=== PATIENT | female | born 1960 | race Caucasian/White ===

== ENCOUNTER 2018-05-26 21:07 | Emergency (ER) | payer BC ==
--- NOTE | 2018-05-26 22:36 | EDM.PDOC ---
<Nati Babb - Last Filed: 05/26/18 22:48> ED HPI GENERAL MEDICAL PROBLEM - General Chief Complaint: Lower Extremity Injury/Pain Stated Complaint: FOOT/ANKLE PAIN Time Seen by Provider: 05/26/18 21:43 Source of Information: Reports: Patient History Limitations: Reports: No Limitations - History of Present Illness INITIAL COMMENTS - FREE TEXT/NARRATIVE: 57 y/o female presents to the ER with cc right ankle and foot pain for the past 2 days. She states she has had problems with this foot before and had bone spurs. She has taken Naprosyn for the pain and it seems to work well. Onset Date: 05/24/18 Onset Time: 12:00 Duration: Getting Worse Location: Reports: Lower Extremity, Right Quality: Reports: Ache Severity: Mild Improves with: Reports: None Worsens with: Reports: Movement Associated Symptoms: Reports: No Other Symptoms Right Feet Pain Score (Numeric/FACES): 8 - Related Data Allergies Allergy/AdvReac Type Severity Reaction Status Date / Time No Known Allergies Allergy Verified 05/26/18 21:19 Home Meds: Home Meds Exenatide Microspheres [Bydureon Pen] 1 dose SQ WEEKLY 05/26/18 [History] Insulin Aspart [NovoLOG] 8 units SQ DAILY 05/26/18 [History] Insulin Glarg,Human.Rec.Analog [Lantus] 40 units SQ DAILY 05/26/18 [History] Levothyroxine Sodium [Synthroid] 25 mcg PO DAILY 05/26/18 [History] Lisinopril [Prinivil] 20 mg PO DAILY 05/26/18 [History] metFORMIN [Glucophage XR] 1,000 mg PO BIDMEALS 05/26/18 [History] Past Medical History Cardiovascular History: Reports: High Cholesterol, Hypertension Genitourinary History: Reports: Diabetic Nephropathy Endocrine/Metabolic History: Reports: Diabetes, Type I, Hyperthyroidism Social & Family History - Tobacco Use Smoking Status *Q: Unknown Ever Smoked Review of Systems - Review of Systems Review Of Systems: See Below Constitutional: Reports: No Symptoms Eyes: Reports: No Symptoms Ears: Reports: No Symptoms Nose: Reports: No Symptoms Mouth/Throat: Reports: No Symptoms Respiratory: Reports: No Symptoms Cardiovascular: Reports: No Symptoms GI/Abdominal: Reports: No Symptoms Genitourinary: Reports: No Symptoms Musculoskeletal: Reports: Foot Pain (right foot/ankle), Joint Pain (right knee pain) Skin: Reports: No Symptoms Neurological: Reports: Other (neuropathy) Psychiatric: Reports: No Symptoms ED EXAM, GENERAL - Physical Exam Exam: See Below General Appearance: Alert, WD/WN, No Apparent Distress Peripheral Pulses: 4+: Dorsalis Pedis (L), Dorsalis Pedis (R) Extremities: Normal Inspection, Normal Range of Motion, No Pedal Edema, Normal Capillary Refill, Other (right ankle tenderness, decreased ROM due to pain, neurovascularly intact. ). No: Sreedhar's Sign Neurological: Alert, Oriented, CN II-XII Intact, Normal Cognition, Normal Gait, Normal Reflexes, No Motor/Sensory Deficits Psychiatric: Normal Affect, Normal Mood Skin Exam: Warm, Dry, Intact, Normal Color, No Rash Lymphatic: No Adenopathy Course - Vital Signs Last Recorded V/S: Last Vital Signs Temp 97.4 F 05/26/18 21:27 Pulse 85 05/26/18 21:27 Resp 18 05/26/18 21:27 BP 179/82 H 05/26/18 21:27 Pulse Ox 98 05/26/18 21:27 - Re-Assessments/Exams Free Text/Narrative Re-Assessment/Exam: 05/26/18 22:46 57 y/o female presents to ER with cc right ankle/foot pain. Her x-ray reveals no fracture of dislocation. I feel her pain maybe due to tendon injury or neuropathy. I will discharge home with instructions to take Naprosyn as needed for pain. Instructed to follow up with DR. Hatch for further evaluation and treatment. Instructed to return to the ER for any new or acute worsening symptoms. She verbalized understanding and is comfortable with plan for discharge. She is stable at time of discharge. Departure - Departure Time of Disposition: 22:49 Disposition: Home, Self-Care 01 Condition: Good Clinical Impression: Tendonitis - Discharge Information *PRESCRIPTION DRUG MONITORING PROGRAM REVIEWED*: Not Applicable *COPY OF PRESCRIPTION DRUG MONITORING REPORT IN PATIENT GERSON: Not Applicable Instructions: Popliteus Tendinitis, Muscle Strain, [id number] Referrals: Kasia Aceves NP [Primary Care Provider] - Forms: ED Department Discharge, ED Return to Work/School Form Additional Instructions: You have been diagnosis with tendonitis. Continue to take your Naprosyn as needed for pain. Follow up with Dr. Mamie. Return to the ER for any new or acute worsening symptoms. You may return to work on May 29 2018 <Donnie Araiza - Last Filed: 05/28/18 08:37> Course - Re-Assessments/Exams Free Text/Narrative Re-Assessment/Exam: 05/28/18 08:36 Hx and exam was done by ARPITA Avina. I have also examined patient. Sx and findings have been discussed, Xrays reviewed. no fx. I agree with hx and exam as documented.
--- NOTE | 2018-05-27 06:47 | CR ---
Right foot: Two views of the right foot were obtained. Comparison: No prior foot exam. Limitations: Proximal phalanges are not well seen within the toes due to toe flexion. No discrete fracture or other bony abnormality is seen. Impression: 1. No abnormality is seen on two-view right foot exam. Diagnostic code #2
== END 2018-05-26 23:04 | disposition home or self-care (01) ==
LOC: JD.ED 21:07
DX: M77.9 Enthesopathy, unspecified (principal); I10 Essential (primary) hypertension; E78.00 Pure hypercholesterolemia, unspecified; E10.21 Type 1 diabetes mellitus with diabetic nephropathy; Z79.4 Long term (current) use of insulin; Z79.899 Other long term (current) drug therapy; Z79.84 Long term (current) use of oral hypoglycemic drugs
CPT/HCPCS: 73620-26-RT; 73620-RT; 99282; 99283-25